=== PATIENT | female | born 1980 | race Caucasian/White ===

== ENCOUNTER → 2021-04-27 02:30 | Outpatient (CLI) | payer OTHER, SELFPAY ==
[2021-04-27 17:30] LABS: SARS-CoV-2 RNA PCR Negative
== END ==
PROVIDERS: PCP Family Medicine; Visit Provider Family Medicine
DX: Z20.822 Contact with and (suspected) exposure to COVID-19 (principal)
CPT/HCPCS: C9803; U0003; U0005